=== PATIENT | female | born 1970 | race Caucasian/White ===

== ENCOUNTER 2025-01-26 16:59 | Emergency (ER) | payer BC ==
[~2025-01-26] VITALS: Ht 162.6 cm; Wt 72.6 kg
--- NOTE | 2025-01-26 17:46 | HMCIMG ---
EXAM: CT Head Without IV contrast. CLINICAL HISTORY: fall, head trauma TECHNIQUE: Axial computed tomography images of the head/brain without intravenous contrast. COMPARISON: None provided. FINDINGS: BRAIN: No evidence of acute hemorrhage. No mass lesion. No CT evidence for acute territorial infarct. No midline shift or extra-axial collections. VENTRICLES: No hydrocephalus. ORBITS: The orbits are unremarkable. SINUSES AND MASTOIDS: The paranasal sinuses and mastoid air cells are clear. BONES: No fracture. SOFT TISSUES: Unremarkable. IMPRESSION: No acute intracranial abnormality. /[place]
--- NOTE | 2025-01-26 18:22 | ERN ---
ED Note History of Present Illness Stated Complaint: FALL Chief Complaint: Mechanical Fall Time Seen by MD: 17:09 Time Seen by Midlevel: 17:09 Dictation: The patient is a 54-year-old female with a history of hypertension, anxiety, cholecystectomy who presents to the emergency department with complaints of right wrist pain and headache onset 215 after a fall. Patient reports she was dragged by her dog causing her to fall forward and hit her forehead and landing on her right arm. Patient denies any LOC, denies any use of blood thinners. Reports headache nausea and dizziness. Denies any neck pain, denies any back or abdominal pain, denies any chest pain. Allergies: Coded Allergies: Penicillins (Unverified Allergy, Unknown, HIVES, 01/26/25) Past Medical History Past Medical History: Anxiety, High Cholesterol, Hypertension, Hypothyroid Surgical History: Cholecystectomy, Other Surgical History Other: BREAST AUGMENTAION RN Note Reviewed/Agreed w/PFSH: Yes Review of System Dictation Constitutional: Negative for fever,chills, and weight loss Eyes: Negative for injury, pain,redness, and discharge ENT: Negative for injury,pain or swelling Cardiovascular: Negative for chest pain, palpitations, and edema Respiratory: Negative for shortness of breath, cough, and wheezing, Abdomen/GI: Negative for abdominal pain, nausea, vomiting, diarrhea, and constipation Back: Negative for injury and pain : Negative for injury, bleeding and discharge MS/Extremity: Positive for right wrist injury Skin: Positive for abrasion to right forearm Neuro: Negative for, weakness, numbness, tingling, and seizure positive for he adache Psych: Negative for suicide ideation, homicidal ideation, and hallucinations Initial Vital Sign VS Vital Signs Date Time Temp Pulse Resp B/P (MAP) Pulse Ox O2 Delivery O2 Flow Rate FiO2 01/26/25 17:02 98.4 76 16 131/94 98 Room Air 0 Physical Exam Dictation Vital Signs reviewed General Appearance: Alert, oriented x 3, no acute distress, well developed, nourished. Head and Face: non-traumatic. Eyes: PERRL, pink conjunctivas, eyelid no trauma, anterior chamber with arcus senilis. Ears: Pinnas intact and no signs of trauma or erythema ear canals clear and no discharge TM no erythema Nose: No discharge, no bleeding. Oropharynx: Mouth normal, tongue pink. pharynx clear,no erythema, tonsils no exudates, no abscesses noted, mucous membrane moist Neck: Supple, non-tender, no thyromegaly, no masses, no JVD, no bruits Breast:Deferred Chest:No tenderness, no crepitus, no paradoxical movement, no retractions Lungs:Clear, well-ventilated, symmetric, no rales, no wheezing, no rhonchi, no stridor, good breath sounds bilaterally Heart: Regular rate, regular rhythm, no murmur, no gallops Vascular: no peripheral edema, radial pulses 3+ bilaterally Abdomen: Soft, positive bowel sounds, nondistended, no guarding, nontender, no rebound, no masses no hepatomegaly, no splenomegaly, no Jules's sign, no hernias. Rectal: Deferred Genital: Deferred Neurological: Normal speech, motor function intact, sensory function intact Musculoskeletal: Neck nontender, full range of motion, back nontender, full range of motion, Extremities: nontender, full range of motion, full range of motion to elbow and right shoulder, mild swelling to right wrist, cap refill less than 2 seconds, no open wounds to wrist Skin: Color pink, dry, no turgor, no rash, no lacerations,, no contusions. Abrasion to right forearm and elbow, no active bleeding, Lymphatic: Deferred Results (Laboratory/Radiology) Laboratory/Radiology REASON: fall ORDERING PHYSICIAN: EMILIE LAZCANO NEWS CLERK PROCEDURE: WRST 3V RT - WRIST COMP 3+VWS RT EXAM: CR right Wrist, 3 View. CLINICAL HISTORY: fall COMPARISON: None provided. FINDINGS: BONES: Nondisplaced comminuted intra-articular fracture of the distal radius. JOINTS: No dislocation. The carpal bones demonstrate normal alignment. Negative ulnar variance. SOFT TISSUES: The soft tissues are unremarkable. IMPRESSION: 1. Nondisplaced comminuted intra-articular fracture of the distal radius. /[place] REASON: fall, head trauma ORDERING PHYSICIAN: EMILIE LAZCANO NEWS CLERK PROCEDURE: HEAD WO - CT HEAD/BRAIN W/O CONTRAST ADDENDUM REPORT ADDENDUM: Results were shared by telephone at 6:53 pm EST on 01-26-2025 and acknowledged by SCHOOL OPERATIONS MANAGER Ms. Emilie Lazcano. /[place] EXAM: CT Head Without IV contrast. CLINICAL HISTORY: fall, head trauma TECHNIQUE: Axial computed tomography images of the head/brain without intravenous contrast. COMPARISON: None provided. FINDINGS: BRAIN: No evidence of acute hemorrhage. No mass lesion. No CT evidence for acute territorial infarct. No midline shift or extra-axial collections. VENTRICLES: No hydrocephalus. ORBITS: The orbits are unremarkable. SINUSES AND MASTOIDS: The paranasal sinuses and mastoid air cells are clear. BONES: No fracture. SOFT TISSUES: Unremarkable. IMPRESSION: No acute intracranial abnormality. /[place] DICTATED BY: JULIO GUALLPA MD DATE: 01/26/251853 ELECTRONICALLY SIGNED BY: DATE: EXAM: CT Head Without IV contrast. CLINICAL HISTORY: fall, head trauma TECHNIQUE: Axial computed tomography images of the head/brain without intravenous contrast. COMPARISON: None provided. FINDINGS: BRAIN: No evidence of acute hemorrhage. No mass lesion. No CT evidence for acute territorial infarct. No midline shift or extra-axial collections. VENTRICLES: No hydrocephalus. ORBITS: The orbits are unremarkable. SINUSES AND MASTOIDS: The paranasal sinuses and mastoid air cells are clear. BONES: No fracture. SOFT TISSUES: Unremarkable. IMPRESSION: No acute intracranial abnormality. /[place] Labs Reviewed?: Yes ED Course ED Course Orders Procedure Category Date Status Time Ct Head/Brain W/O CT 01/26/25 Resulted Contrast 17:19 Wrist Comp 3+Vws Rt RAD 01/26/25 Resulted 17:19 Wound Care (Er) CPOE 01/26/25 Transmitted 17:19 Tetanus,Diphtheria PHA 01/26/25 Complete Tox [Adult] (Diphther 17:30 Hydrocodone/Apap PHA 01/26/25 Complete 5/325 ([place] 5/325mg) 17:30 Volar Splint [email or web address] 01/26/25 In Process 18:46 Current Medications Medications (Trade) Dose Ordered Sig/Arben Route PRN Reason Start Time Stop Time Status Last Admin Dose Admin Acetaminophen/ Hydrocodone Bitart (NORco 5/325MG) 1 tab ONCE ONCE PO 01/26/25 17:30 01/26/25 17:31 DC Tetanus/ Diphtheria Toxoids Adsorbed (DiphthERIA-teTANUS TOXOID [ADULT]/ DECAVAC) 0.5 ml ONCE ONCE IM 01/26/25 17:30 01/26/25 17:31 DC Vital Signs Date Time Temp Pulse Resp B/P (MAP) Pulse Ox O2 Delivery O2 Flow Rate FiO2 01/26/25 17:02 98.4 76 16 131/94 98 Room Air 0 Medical Decision Making MDM The patient is a 54-year-old female with a history of hypertension, anxiety, cholecystectomy who presents to the emergency department with complaints of right wrist pain and headache onset 215 after a fall. Patient reports she was dragged by her dog causing her to fall forward and hit her forehead and landing on her right arm. Patient denies any LOC, denies any use of blood thinners. Reports headache nausea and dizziness. Denies any neck pain, denies any back or abdominal pain, denies any chest pain. CT head showed no acute intracranial abnormality. Wrist x-ray showed a nondisplaced comminuted intra-articular fracture of the distal radius. Patient will be splinted and referred to ortho. Patient is neurovascular intact, small abrasion to forearm but no deformities or tenderness, small abrasion to knee about 1.5cm in diameter, no active bleeding wounds cleaned. Full ROM. Patient given concussion instructions. Patient in no acute distress, neurologically intact. We will discharged to follow up with PCP and ortho. Differential diagnosis: Concussion, intracerebral hemorrhage, right wrist fracture, wrist sprain Need for hospitalization: Patient does not meet criteria for hospitalization. There are no social concerns with this patient. DX & DISP Disposition: Discharge Departure Impression: Primary Impression: Distal radius fracture, right Additional Impressions: Concussion, Head contusion Condition: Stable Scripts Meloxicam (Meloxicam) 15 Mg Tablet 1 TAB PO DAILY for 15 Days, #30 TAB 0 Refills Prov: EMILIE LAZCANO NEWS CLERK 01/26/25 Additional Instructions: Your CT head was normal. Your wrist x-ray showed you have a fracture. You will need to follow up with Orthopedic (bone doctor). Keep your splint until instructed by your doctor. If anything worsens please return to ER. A concussion is the medical term for a mild brain injury. Concussion can cause memory loss and headache. Concussion usually happens after head injury but can be caused by a violent shaking. Other causes include car accidents, falling down, injuries while playing sports. Treatment for concussions include preventing further injury while you are healing. Avoid any activities that can lead to another head injury like sports. Rest your body and get plenty of sleep. Avoid heavy exercise or too much physical activity if it makes you feel worse. Avoid activities that need concentration or lot of attention if it makes you feel worse. Avoid use of video games, prolonged screen time. Avoid any alcohol or drugs. You can treat your headaches with Tylenol. Keep wounds clean and dry avoid any pools, lakes or beaches you completely heal to avoid any infection. Your wounds become red and warm or you develop fevers please follow up with the primary doctor FOLLOW-UP WITH PRIMARY CARE PROVIDER IN 1 TO 2 DAYS. TAKE MEDICATIONS DIRECTED HERE IN THE EMERGENCY ROOM. OKAY TO CONTINUE HOME MEDICATIONS UNLESS OTHERWISE DISCUSSED DURING YOUR VISIT IN THE EMERGENCY ROOM TODAY. RETURN TO YOUR NEAREST EMERGENCY ROOM IF SYMPTOMS WORSEN OR IF THERE IS NO IMPROVEMENT. CALL 911 IF YOU NEED IMMEDIATE ASSISTANCE. TAKE TYLENOL [id number] NEEDED AND IF NO CONTRAINDICATIONS ARE PRESENT. INCREASE ORAL HYDRATION. A WOUND CULTURE OR URINE CULTURE WAS ORDERED HERE IN THE EMERGENCY ROOM DEPARTMENT PLEASE FOLLOW-UP WITH PRIMARY CARE PROVIDER AND ADVISE THEM TO GET REPEAT PORTS FROM OUR FACILITY. IF YOU HAD ANY ABEL WRAP/SPLINTS THAT WERE APPLIED HERE, PLEASE DO NOT REMOVE THEM UNTIL YOU SEE YOUR PRIMARY CARE OR SPECIALTY. Referrals: REE GUTIÉRREZ (PCP) TATYANA SUAZO MD Time of Disposition: 19:02 I have reviewed the case, and I agree with, Diagnosis and Plan EMILIE LAZCANO Jan 26, 2025 18:22
--- NOTE | 2025-01-26 18:30 | HMCIMG ---
EXAM: CR right Wrist, 3 View. CLINICAL HISTORY: fall COMPARISON: None provided. FINDINGS: BONES: Nondisplaced comminuted intra-articular fracture of the distal radius. JOINTS: No dislocation. The carpal bones demonstrate normal alignment. Negative ulnar variance. SOFT TISSUES: The soft tissues are unremarkable. IMPRESSION: 1. Nondisplaced comminuted intra-articular fracture of the distal radius. /[place]
[2025-01-26] MEDS ORDERED: MELO-108 PO (19:02)
[2025-01-26] MEDS: HYDROcodone/APAP 5/325 1 TAB TABLET PO ONE (20:02)
[2025-01-26 20:38] VITALS: BP 132/91; PULSE 68; RESP 18; TEMP 98.5; O2SAT 98
== END 2025-01-26 20:40 | disposition home or self-care (01) ==
LOC: EDH 16:59
DX: S52.571A Other intraarticular fracture of lower end of right radius, initial encounter for closed fracture (principal); S06.0X0A Concussion without loss of consciousness, initial encounter; S00.93XA Contusion of unspecified part of head, initial encounter; E03.9 Hypothyroidism, unspecified; E78.00 Pure hypercholesterolemia, unspecified; I10 Essential (primary) hypertension; Z88.0 Allergy status to penicillin; Z90.49 Acquired absence of other specified parts of digestive tract; W18.39XA Other fall on same level, initial encounter; Y93.89 Activity, other specified; Y92.89 Other specified places as the place of occurrence of the external cause; Y99.8 Other external cause status
CPT/HCPCS: 29125; 70450; 73110; 90471; 90714; 99284